=== PATIENT | male | born 1965 | race Caucasian/White ===

== ENCOUNTER → 2016-05-13 | Outpatient (CLI) | payer BC ==
[~2016-05-13] MED LIST: REGADENOSON 0.4 MG/5 ML SYR ONE; SYMIN160 INH; VLTG EXT; VNTHFA/IN INH
--- NOTE | 2016-05-14 00:07 | MYOCARDIAL PERFUSION SCAN ---
STUDY REQUESTED BY: Dr. Shine Crespo. ONE-DAY NUCLEAR MEDICINE TECHNETIUM-99M CARDIOLITE MYOCARDIAL PERFUSION SCAN. INDICATION: Atypical chest pain, new left bundle-branch block. BASELINE EKG: Sinus rhythm at a ventricular rate of 70, first-degree AV block and left bundle-branch block. REGADENOSON STRESS EKG: Nondiagnostic due to left bundle branch and inability to achieve target heart rate. Blood pressure ankit from 128/83 to 133/70. There was no pharmacologic-induced chest tightness. TECHNIQUE: For the stress portion of the study, 32.4 mCi of technetium-99m Cardiolite IV was injected at 1325 on May 13. Thirty minutes following the injection, imaging of the heart was performed in multiple projections. For the rest portion of the study, 11.6 mCi of technetium-99m Cardiolite was injected IV at 1125. One hour following the injection, imaging of the heart was performed in the same projections. FINDINGS: Raw images show mild diaphragmatic attenuation. There is no significant gut uptake impairing the imaging borders of the heart. No significant pathologic extracardiac uptake. No evidence of visual TID. Short axis, vertical long axis and horizontal long axis images were reviewed in detail. There was evidence of a fixed [id number] in severity and moderate in size perfusion defect involving the mid and inferoseptum as well as the apical anterior septal and inferior wall and true apex. There was no significant reversibility. Left ventricular size was upper limit of normal up with preserved overall LV systolic function EF 56%. There was apical septal dyskinesis with wall motion. IMPRESSION: 1. Negative myocardial perfusion study for ischemia. 2. Fixed myocardial perfusion defect involving the septum and apex sparing the lateral apical wall. 3. Normal left ventricular size with preserved overall left ventricular function, EF 56%. Apical septal dyskinesis. 4. Nondiagnostic Regadenoson-induced stress electrocardiogram. 5. Overall, these findings are most consistent with normal perfusion and left-bundle branch block artifact. Possible distal LAD distribution infarct less likely. MTDD
== END | disposition home or self-care (01) ==
LOC: C.NUCL 11:03
PROVIDERS: ATTEND Internal Medicine Interventional Cardiology
DX: E78.5 Hyperlipidemia, unspecified (principal); I44.7 Left bundle-branch block, unspecified; R07.89 Other chest pain

== ENCOUNTER 2016-07-01 01:58 | Observation (INO) | payer BC ==
[~2016-07-01] VITALS: Ht 188 cm; Wt 103.6 kg
[2016-07-01] MEDS ORDERED: ASPIRIN 324 MG CHEW PO STA (02:22)
[2016-07-01] MEDS ORDERED: NITROGLYCERIN OINT 2% 1GM PACKET EXT ONE (02:30)
[2016-07-01 02:42] LABS: BASO % 0.7 %; BASO ABS # 0.05 K/uL (0-0.2); COMPLETE YES; EOS % 2.3 %; HEMATOCRIT 44.3 % (42-52); IG% 0.3 %; LYMPH % 45.1 %; LYMPH ABS # 3.47 K/uL (1.2-3.4); MEAN CELL VOLUME 88.8 fL (80-100); MEAN CORPUSCULAR HEMOGLOBIN 30.9 pg (25-34); MEAN CORPUSCULAR HGB CONC 34.8 g/dl (32-36); MEAN PLATELET VOLUME 10.8 fL (7.4-10.4); MONO % 9.8 %; NEUT % 41.8 %; PLATELET COUNT 228 K/uL (130-400); RED BLOOD COUNT 4.99 M/uL (4.7-6.1); WHITE BLOOD COUNT 7.69 K/uL (4.8-10.8)
[2016-07-01 02:50] LABS: CALCIUM 8.5 mg/dl (8.5-10.1); CREATININE 0.91 mg/dl (0.60-1.40); MAGNESIUM 2.2 mg/dl (1.8-2.4); POTASSIUM 3.5 mmol/L (3.5-5.1)
[2016-07-01 02:59] LABS: PROTHROMBIN TIME (PATIENT) 11.1 SECONDS (9.0-12.0)
[2016-07-01] MEDS ORDERED: OPTIRAY 320 IV PRN (03:00)
[2016-07-01 03:01] LABS: CKMB/CK RATIO 1.8 (0-3.0); THYROID STIMULATING HORMONE 3.92 uIu/ml (0.300-4.500)
[2016-07-01 03:33] LABS: LYME DISEASE AB IGG NEG (NEG); LYME DISEASE AB IGM NEG (NEG)
[2016-07-01] MEDS ORDERED: VNTHFA/IN INH (05:52)
[2016-07-01] MEDS ORDERED: SYMIN160 INH (05:52)
--- NOTE | 2016-07-01 06:48 | DIAGNOSTIC IMAGING REPORT ---
CHEST 2 VIEWS ROUTINE CLINICAL HISTORY: Chest pain, back pain and nausea. COMPARISON STUDY: No previous studies for comparison. FINDINGS: Lung volumes are normal. Lungs are clear. There is no pneumothorax or pleural effusion. Cardiac size is normal. Mediastinal contours are normal. There is no evidence of pulmonary edema. IMPRESSION: No acute cardiopulmonary findings. Electronically signed by: Fitz Camarillo M.D. 07/01/2016 6:47 AM Dictated Date/Time: 07/01/2016 6:46 AM
--- NOTE | 2016-07-01 07:26 | DIAGNOSTIC IMAGING REPORT ---
CT ANGIOGRAPHY OF THE CHEST, PULMONARY EMBOLUS PROTOCOL CLINICAL HISTORY: Mid chest and back pain. Elevated d-dimer. COMPARISON STUDY: Chest radiograph July 01, 2016. TECHNIQUE: Following IV administration of 92 mL of Optiray-320, helical axial images of the chest were obtained utilizing the pulmonary embolus protocol. Maximal intensity projections and sagittal and coronal reformats were viewed on an independent 3D workstation. IV contrast was administered without complication. CT DOSE: 579.70 mGy.cm FINDINGS: No pulmonary emboli are identified. The size of the heart is at the upper limits of normal. There is no evidence of thoracic aortic dissection. There is no pericardial effusion. No enlarged thoracic lymph nodes are present. Central airways are patent. There is no consolidation to suggest pneumonia. Linear and groundglass opacities reflect atelectasis. Bony thorax and upper abdomen are unremarkable. IMPRESSION: 1. No pulmonary emboli identified. 2. No acute intrathoracic findings. Electronically signed by: Fitz Camarillo M.D. 07/01/2016 7:25 AM Dictated Date/Time: 07/01/2016 7:18 AM
--- NOTE | 2016-07-01 07:47 | EMERGENCY ROOM VISIT NOTE ---
History First contact with patient: 02:04 Chief Complaint: CHEST PAIN Stated Complaint: PAIN IN CHEST/BACK,NAUSEA Nursing Triage Summary: Pt woke up with pain in his back radiating into his chest, pt was nauseous then at time. History of Present Illness The patient is a 50 year old male who presents to the Emergency Room with complaints of pain between his shoulder blades that was radiating into his chest. The patient was nauseated and did not feel well at the onset of symptoms. His symptoms began around 12:30 AM and have persisted. The patient considers himself usually healthy and has not had recent illness. He is without distinct shortness of breath. The pain does not radiate into his abdomen or up into the back of his neck. He did take a baby aspirin at the onset of symptoms. The patient has a recent history of abnormal EKG with a cardiac stress test performed last month. The patient states the stress test was normal. He rates his current discomfort a 6/10. Review of Systems More than 10 systems were reviewed and otherwise negative with the exception of history of present illness. Past Medical/Surgical History No chronic medical disease Family History No pertinent family history Social History Smoking Status: Never Smoker Housing Status: lives with family Occupation Status: employed Current/Historical Medications Scheduled Budesonide/Formoterol Fumarate (Symbicort 160/4.5 Inhaler ), 2 PUFFS INH BID Scheduled PRN Albuterol Hfa (Ventolin Hfa), 2-4 PUFFS INH Q6H PRN for SOB/Wheezing Allergies Coded Allergies: No Known Allergies (Unverified , 07/01/16) Physical Exam Vital Signs Date Time Temp Pulse Resp B/P Pulse Ox O2 Delivery O2 Flow Rate FiO2 07/01/16 07:24 72 20 109/70 94 Room Air 07/01/16 06:34 76 18 103/68 97 Room Air 07/01/16 06:18 67 07/01/16 05:00 71 18 105/66 98 Room Air 07/01/16 03:12 76 18 132/72 97 Room Air 07/01/16 02:28 Room Air 07/01/16 02:15 69 07/01/16 02:10 Room Air 07/01/16 01:59 36.4 79 18 142/86 94 Room Air Physical Exam VITALS: Vitals are noted on the nurse's note and reviewed by myself. Vital signs stable. GENERAL: Well-developed, well-nourished, white male, who is in no acute distress and resting comfortably. Patient is cooperative with the examination. HEAD: Normocephalic atraumatic. NECK: Supple without nuchal rigidity. No lymphadenopathy. No thyromegaly. Cervical spine is nontender. HEART: Regular rate and rhythm without murmurs gallops or rubs. LUNGS: Clear to auscultation bilaterally without wheezes, rales or rhonchi. No retractions or accessory muscle use. MUSCULOSKELETAL: No muscle atrophy, erythema, or edema noted. Full range of motion without joint tenderness in all extremities. Medical Decision & Procedures ER Provider Diagnostic Interpretation: CHEST 2 VIEWS ROUTINE CLINICAL HISTORY: Chest pain, back pain and nausea. COMPARISON STUDY: No previous studies for comparison. FINDINGS: Lung volumes are normal. Lungs are clear. There is no pneumothorax or pleural effusion. Cardiac size is normal. Mediastinal contours are normal. There is no evidence of pulmonary edema. IMPRESSION: No acute cardiopulmonary findings. CT ANGIOGRAPHY OF THE CHEST, PULMONARY EMBOLUS PROTOCOL CLINICAL HISTORY: Mid chest and back pain. Elevated d-dimer. COMPARISON STUDY: Chest radiograph July 01, 2016. TECHNIQUE: Following IV administration of 92 mL of Optiray-320, helical axial images of the chest were obtained utilizing the pulmonary embolus protocol. Maximal intensity projections and sagittal and coronal reformats were viewed on an independent 3D workstation. IV contrast was administered without complication. CT DOSE: 579.70 mGy.cm FINDINGS: No pulmonary emboli are identified. The size of the heart is at the upper limits of normal. There is no evidence of thoracic aortic dissection. There is no pericardial effusion. No enlarged thoracic lymph nodes are present. Central airways are patent. There is no consolidation to suggest pneumonia. Linear and groundglass opacities reflect atelectasis. Bony thorax and upper abdomen are unremarkable. IMPRESSION: 1. No pulmonary emboli identified. 2. No acute intrathoracic findings. Laboratory Results 07/01/16 02:10 Red Blood Count 4.99, Mean Corpuscular Volume 88.8, Mean Corpuscular Hemoglobin 30.9, Mean Corpuscular Hemoglobin Concent 34.8, Mean Platelet Volume 10.8, Neutrophils (%) (Auto) 41.8, Lymphocytes (%) (Auto) 45.1, Monocytes (%) (Auto) 9.8, Eosinophils (%) (Auto) 2.3, Basophils (%) (Auto) 0.7, Neutrophils # (Auto) 3.22, Lymphocytes # (Auto) 3.47, Monocytes # (Auto) 0.75, Eosinophils # (Auto) 0.18, Basophils # (Auto) 0.05 07/01/16 02:10 Test 07/01/16 02:10 07/01/16 02:27 07/01/16 06:21 White Blood Count 7.69 K/uL (4.8-10.8) Red Blood Count 4.99 M/uL (4.7-6.1) Hemoglobin 15.4 g/dL (14.0-18.0) Hematocrit 44.3 % (42-52) Mean Corpuscular Volume 88.8 fL (80-100) Mean Corpuscular Hemoglobin 30.9 pg (25-34) Mean Corpuscular Hemoglobin Concent 34.8 g/dl (32-36) Platelet Count 228 K/uL (130-400) Mean Platelet Volume 10.8 fL (7.4-10.4) Neutrophils (%) (Auto) 41.8 % Lymphocytes (%) (Auto) 45.1 % Monocytes (%) (Auto) 9.8 % Eosinophils (%) (Auto) 2.3 % Basophils (%) (Auto) 0.7 % Neutrophils # (Auto) 3.22 K/uL (1.4-6.5) Lymphocytes # (Auto) 3.47 K/uL (1.2-3.4) Monocytes # (Auto) 0.75 K/uL (0.11-0.59) Eosinophils # (Auto) 0.18 K/uL (0-0.5) Basophils # (Auto) 0.05 K/uL (0-0.2) RDW Standard Deviation 39.7 fL (36.4-46.3) RDW Coefficient of Variation 12.3 % (11.5-14.5) Immature Granulocyte % (Auto) 0.3 % Immature Granulocyte # (Auto) 0.02 K/uL (0.00-0.02) Prothrombin Time 11.1 SECONDS (9.0-12.0) Prothromb Time International Ratio 1.0 (0.9-1.1) Activated Partial Thromboplast Time 25.0 SECONDS (21.0-31.0) Partial Thromboplastin Ratio 1.0 Anion Gap 7.0 mmol/L (3-11) Est Creatinine Clear Calc Drug Dose 124.7 ml/min Estimated GFR () 113.5 Estimated GFR (Non- 97.9 BUN/Creatinine Ratio 14.0 (10-20) Calcium Level 8.5 mg/dl (8.5-10.1) Magnesium Level 2.2 mg/dl (1.8-2.4) Total Bilirubin 0.5 mg/dl (0.2-1) Aspartate Amino Transf (AST/SGOT) 25 U/L (15-37) Alanine Aminotransferase (ALT/SGPT) 42 U/L (12-78) Alkaline Phosphatase 96 U/L (45-117) Total Creatine Kinase 150 U/L (39-308) Creatine Kinase MB 2.7 ng/ml (0.5-3.6) Creatine Kinase MB Ratio 1.8 (0-3.0) Total Protein 7.7 gm/dl (6.4-8.2) Albumin 3.9 gm/dl (3.4-5.0) Globulin 3.8 gm/dl (2.5-4.0) Albumin/Globulin Ratio 1.0 (0.9-2) Lipase 145 U/L (73-393) Thyroid Stimulating Hormone (TSH) 3.920 uIu/ml (0.300-4.500) Lyme Disease IgG Antibody NEG (NEG) Lyme Disease IgM Antibody NEG (NEG) Bedside D-Dimer > 450 ng/mlFEU (0-450) Bedside Troponin I 0.000 ng/ml (0-0.045) Medications Administered Medications (Trade) Dose Ordered Sig/Juan David Route Start Time Stop Time Status Last Admin Dose Admin Nitroglycerin (Nitroglycerin 2% Oint) 1 inch NOW ONCE EXT 07/01/16 02:30 07/01/16 02:31 DC 07/01/16 02:34 1 INCH Aspirin (Aspirin Chew) 243 mg NOW STAT PO 07/01/16 02:22 07/01/16 02:26 DC 07/01/16 02:34 243 MG ECG Change: EKG#1 @ 02:06 Normal sinus rhythm with sinus arrhythmia @77bpm Left bundle branch block Abnormal ECG No previous ECGs available EKG #2 @06:16 Normal sinus rhythm @68bpm Left bundle branch block Abnormal ECG When compared with ECG of 01-JUL-2016 02:06, (unconfirmed) T wave inversion no longer evident in Inferior leads QT has shortened ED Course Physical exam and history were performed. Nursing notes and EMR were reviewed. Patient appears to have pain radiating from his back to his chest. EKG was performed and was normal sinus rhythm without distinct ST elevation. IV access was established and labs were obtained. The patient was given additional aspirin and 1 inch of Nitropaste. He is placed on a parts sales advisor. The patient blood work is as above and was reviewed. He does not have significantly white blood cell count, anemia, bandemia, or significant electrolyte imbalance. His lipase and transaminases are nondiagnostic. Troponin 2 was negative and d-dimer was positive. CT scan of the chest did not show acute findings. I discussed the case with the on-call scoop machine operator for [facility], and the recommendation was to perform a third troponin, which would give a full 6 hours of troponins. If this was negative the patient was felt to be stable for discharge home. Prior to departure I was observing the patient on the parts sales advisor, and his monitor EKG appeared to be different from his presenting EKG. A formal EKG was performed with the same EKG leads and the same machine, and showed a distinctly different finding, especially along the lateral leads. Because of this the patient was not felt to be stable for discharge home. He is currently without pain after nitro paste and aspirin. The case was discussed with the on-call hospitalist, who agreed to evaluate the patient here in the emergency department for further care and management. The chart was completed utilizing [employer] Speech Voice Recognition Software. Grammatical errors, random word insertions, pronoun errors, and incomplete sentences are an occasional consequence of this system due to software limitations, ambient noise, and hardware issues. Any formal questions or concerns about the content, text, or information contained within the body of this dictation should be directly addressed to the provider for clarification. . Medical Decision Differential diagnosis includes, but is not limited to: Myocardial infarction, dysrhythmia, pericarditis, pneumothorax, aortic aneurysm/dissection, DVT/PE, anxiety, GERD, PUD, electrolyte imbalance, thyroid disorder, pneumonia, bronchitis, pancreatitis, and others Impression Primary Impression: Acute chest pain Additional Impression: Acute electrocardiogram changes Departure Information Referrals Solic, Rufino,M.D. (PCP) Patient Instructions My [facility] Problem Qualifiers
[2016-07-01 07:56] VITALS: O2SAT 94; Ht 188 cm; Wt 103.6 kg
[2016-07-01] MEDS ORDERED: ALBUTEROL HFA 8 GM INHALER INH PRN (08:00)
[2016-07-01] MEDS ORDERED: POLYETHYLENE (MIRALAX) 17 GM PACK PO PRN (08:00)
[2016-07-01] MEDS ORDERED: ONDANSETRON INJ 2 MG/ML 2 ML VIAL IV PRN (08:00)
[2016-07-01] MEDS ORDERED: ENOXAPARIN 40 MG/0.4 ML SYR SC SCH (08:00)
[2016-07-01] MEDS ORDERED: MAGNESIUM HYDROXIDE SUSP 30 ML UDC PO PRN (08:00)
[2016-07-01] MEDS ORDERED: ALUMINUM/MAGNESIUM/SIMETH (MAALOX MAX) 30 ML UDC PO PRN (08:00)
[2016-07-01] MEDS ORDERED: ACETAMINOPHEN 325 MG TAB PO PRN (08:00)
[2016-07-01] MEDS ORDERED: NITROGLYCERIN 0.4 MG SL PER TAB CHARGE SL PRN (08:00)
--- NOTE | 2016-07-01 08:22 | History and Physical ---
History & Physical Date & Time of Service: July 01, 2016 at 07:59 Chief Complaint: Pain In Chest/Back,Nausea Primary Care Physician: Rufino Hernandez M.D. History of Present Illness Source: patient, family, clinic records, hospital records Patient is a pleasant 50 y/o male, with PMHx of dyslipidemia, asthma, and seasonal allergies, who presented to the ED because of left back pain that occurred at 0100. The pain felt like a stabbing pain. He felt the pain was musculoskeletal in nature. It did not radiate. He admits to associated nausea, but states he thinks "he worked himself up." He currently denies any discomfort. He admits to having a massage on 06/29, and states the massage therapist was really "digging in." Patient was recently seen by Dr. Crespo for a cardiac workup due to dyslipidemia and GERD-like symptoms. Patient had a stress ECHO on 05/13/16; he states he was called by cardiology and cleared with no further restrictions or workup needed. Patient denies any fever, chills, sweats , lightheadedness, dizziness, vision changes, CP, palpitations, edema, SOB, wheezing, cough, abdominal pain, nausea, vomiting, diarrhea, urinary symptoms, melena, numbness/tingling, weakness, anxiety/depression, active bleeding, or new skin discoloration/changes. Past Medical/Surgical History PMHx: 1. Asthma 2. Seasonal allergies 3. Dyslipidemia Surgical repair: 1. Hernia repair Family History Brother- leukemia Social History Smoking Status: Never Smoker Alcohol Use: socially Marital Status: Occupational Status: employed Multi-Drug Resistant Organisms History of MDRO: No Allergies Coded Allergies: No Known Allergies (Unverified , 07/01/16) Home Medications Scheduled Budesonide/Formoterol Fumarate (Symbicort 160/4.5 Inhaler ), 2 PUFFS INH BID Diclofenac Sod (Voltaren), 1 APPLN EXT QID Scheduled PRN Albuterol Hfa (Ventolin Hfa), 2-4 PUFFS INH Q6H PRN for SOB/Wheezing Physical Exam Vital Signs Date Time Temp Pulse Resp B/P Pulse Ox O2 Delivery O2 Flow Rate FiO2 07/01/16 07:24 72 20 109/70 94 Room Air 07/01/16 06:34 76 18 103/68 97 Room Air 07/01/16 06:18 67 07/01/16 05:00 71 18 105/66 98 Room Air 07/01/16 03:12 76 18 132/72 97 Room Air 07/01/16 02:28 Room Air 07/01/16 02:15 69 07/01/16 02:10 Room Air 07/01/16 01:59 36.4 79 18 142/86 94 Room Air General Appearance: WD/WN, no apparent distress Head: normocephalic, atraumatic Eyes: normal inspection, PERRL ENT: hearing grossly normal Neck: supple Respiratory/Chest: lungs clear, no respiratory distress, no accessory muscle use Cardiovascular: regular rate, rhythm Abdomen/GI: normal bowel sounds, non tender, soft Back: normal inspection, + pertinent finding (noted mild left musculoskeletal discomfort ttp at left/medial shoulder blade ) Extremities/Musculoskelatal: no calf tenderness, no pedal edema Neurologic/Psych: alert, normal mood/affect, oriented x 3 Skin: normal color, warm/dry, no rash Diagnostics Laboratory Results Results Past 24 Hours Test 07/01/16 02:10 07/01/16 02:27 07/01/16 03:56 07/01/16 06:21 Range/Units White Blood Count 7.69 4.8-10.8 K/uL Red Blood Count 4.99 4.7-6.1 M/uL Hemoglobin 15.4 14.0-18.0 g/dL Hematocrit 44.3 42-52 % Mean Corpuscular Volume 88.8 80-100 fL Mean Corpuscular Hemoglobin 30.9 25-34 pg Mean Corpuscular Hemoglobin Concent 34.8 32-36 g/dl Platelet Count 228 130-400 K/uL Mean Platelet Volume 10.8 7.4-10.4 fL Neutrophils (%) (Auto) 41.8 % Lymphocytes (%) (Auto) 45.1 % Monocytes (%) (Auto) 9.8 % Eosinophils (%) (Auto) 2.3 % Basophils (%) (Auto) 0.7 % Neutrophils # (Auto) 3.22 1.4-6.5 K/uL Lymphocytes # (Auto) 3.47 1.2-3.4 K/uL Monocytes # (Auto) 0.75 0.11-0.59 K/uL Eosinophils # (Auto) 0.18 0-0.5 K/uL Basophils # (Auto) 0.05 0-0.2 K/uL RDW Standard Deviation 39.7 36.4-46.3 fL RDW Coefficient of Variation 12.3 11.5-14.5 % Immature Granulocyte % (Auto) 0.3 % Immature Granulocyte # (Auto) 0.02 0.00-0.02 K/uL Prothrombin Time 11.1 9.0-12.0 SECONDS Prothromb Time International Ratio 1.0 0.9-1.1 Activated Partial Thromboplast Time 25.0 21.0-31.0 SECONDS Partial Thromboplastin Ratio 1.0 Sodium Level 143 136-145 mmol/L Potassium Level 3.5 3.5-5.1 mmol/L Chloride Level 105 98-107 mmol/L Carbon Dioxide Level 31 21-32 mmol/L Anion Gap 7.0 3-11 mmol/L Blood Urea Nitrogen 13 7-18 mg/dl Creatinine 0.91 0.60-1.40 mg/dl Est Creatinine Clear Calc Drug Dose 124.7 ml/min Estimated GFR () 113.5 Estimated GFR (Non- 97.9 BUN/Creatinine Ratio 14.0 10-20 Random Glucose 116 70-99 mg/dl Calcium Level 8.5 8.5-10.1 mg/dl Magnesium Level 2.2 1.8-2.4 mg/dl Total Bilirubin 0.5 0.2-1 mg/dl Aspartate Amino Transf (AST/SGOT) 25 15-37 U/L Alanine Aminotransferase (ALT/SGPT) 42 12-78 U/L Alkaline Phosphatase 96 45-117 U/L Total Creatine Kinase 150 39-308 U/L Creatine Kinase MB 2.7 0.5-3.6 ng/ml Creatine Kinase MB Ratio 1.8 0-3.0 Total Protein 7.7 6.4-8.2 gm/dl Albumin 3.9 3.4-5.0 gm/dl Globulin 3.8 2.5-4.0 gm/dl Albumin/Globulin Ratio 1.0 0.9-2 Lipase 145 73-393 U/L Thyroid Stimulating Hormone (TSH) 3.920 0.300-4.500 uIu/ml Lyme Disease IgG Antibody NEG NEG Lyme Disease IgM Antibody NEG NEG Bedside D-Dimer > 450 0-450 ng/mlFEU Bedside Troponin I 0.000 0.000 0.000 0-0.045 ng/ml Diagnostic Radiology CHEST 2 VIEWS ROUTINE CLINICAL HISTORY: Chest pain, back pain and nausea. COMPARISON STUDY: No previous studies for comparison. FINDINGS: Lung volumes are normal. Lungs are clear. There is no pneumothorax or pleural effusion. Cardiac size is normal. Mediastinal contours are normal. There is no evidence of pulmonary edema. IMPRESSION: No acute cardiopulmonary findings. Electronically signed by: Fitz Camarillo M.D. 07/01/2016 6:47 AM Dictated Date/Time: 07/01/2016 6:46 AM The status of this report is Signed. Draft = Not yet reviewed or approved by Radiologist. Signed = Reviewed and approved by Radiologist. CT ANGIOGRAPHY OF THE CHEST, PULMONARY EMBOLUS PROTOCOL CLINICAL HISTORY: Mid chest and back pain. Elevated d-dimer. COMPARISON STUDY: Chest radiograph July 01, 2016. TECHNIQUE: Following IV administration of 92 mL of Optiray-320, helical axial images of the chest were obtained utilizing the pulmonary embolus protocol. Maximal intensity projections and sagittal and coronal reformats were viewed on an independent 3D workstation. IV contrast was administered without complication. CT DOSE: 579.70 mGy.cm FINDINGS: No pulmonary emboli are identified. The size of the heart is at the upper limits of normal. There is no evidence of thoracic aortic dissection. There is no pericardial effusion. No enlarged thoracic lymph nodes are present. Central airways are patent. There is no consolidation to suggest pneumonia. Linear and groundglass opacities reflect atelectasis. Bony thorax and upper abdomen are unremarkable. IMPRESSION: 1. No pulmonary emboli identified. 2. No acute intrathoracic findings. Electronically signed by: Fitz Camarillo M.D. 07/01/2016 7:25 AM Dictated Date/Time: 07/01/2016 7:18 AM The status of this report is Signed. Draft = Not yet reviewed or approved by Radiologist. Signed = Reviewed and approved by Radiologist. EKG PARMJIT SANDOVAL ID:[id number] 01-JUL-2016 02:06:33 [facility] Normal sinus rhythm with sinus arrhythmia Left bundle branch block Abnormal ECG No previous ECGs available 25mm/s 10mm/mV 150Hz 8.0 SP2 12SL 241 CLE[place]: 0 Referred by: Referred Self Unconfirmed Vent. rate 77 BPM IA interval 196 ms QRS duration 174 ms QT/QTc 464/525 ms P-R-T axes 63 28 -83 1965 (50 yr) Male Room: Loc:15 Helminthologist:Stephanie Blount Test ind: PARMJIT SANDOVAL ID:[id number] 01-JUL-2016 06:16:09 [facility] Normal sinus rhythm Left bundle branch block Abnormal ECG When compared with ECG of 01-JUL-2016 02:06, (unconfirmed) T wave inversion no longer evident in Inferior leads QT has shortened 25mm/s 10mm/mV 150Hz 8.0 SP2 12SL 241 CLE[place]: 0 Referred by: Referred Self Unconfirmed Vent. rate 68 BPM IA interval 192 ms QRS duration 150 ms QT/QTc 446/474 ms P-R-T axes 1965 (50 yr) Male Room: Loc:15 Helminthologist:JESSICA TRIPLETT Test ind: Impression Assessment and Plan Patient is a pleasant 50 y/o male, with PMHx of dyslipidemia, asthma, and seasonal allergies, who presented to the ED because of left back pain that occurred at 0100. Cardiac workup: - Admit to tele observation - Trend cardiac enzymes- negative x3, will repeat at noon - Elevated d-dimer- CTA negative for PE - CXR unremarkable - Lyme disease- negative - Patient follows w/ Dr. Crespo- recently had a stress ECHO on 05/13/16 - Spoke w/ Dr. Crespo, repeat trop at noon, will see patient later this afternoon - Will keep patient NPO pending cardiology consult - Elevated BSG @116- check ha1c - EKG w/ CP and QAM Dyslipidemia: - Noted in Jan 2016- has been living a healthier lifestyle and losing weight Asthma: Continue home inhalers GI Prophylaxis: Maalox PRN, IV Zofran PRN, Colace and/or Milk of Mag PRN DVT prophylaxis: Ambulation Code Status: LEVEL I, FULL Dispo: From home, lives w/ family- no discharge needs anticipated Level of Care Telemetry Resuscitation Status FULL RESUSCITATION VTE Prophylaxis VTE Risk Assessment Done? Y/N: Yes Risk Level: Low Given or contraindicated: Enoxaparin (Lovenox)SQ, T.E.D. Stockings, SCD's Note Attending Admission Note & Attestation: Pt seen/examined, chart reviewed, and care plan d/w PA Su Murarik. I agree w/ the goncalves components of her admission documentation. 50yo male with history of asthma & hyperlipidemia who presented early this AM w / complaint of left upper back pain near the medial border of his left scapula. The pain made him have nausea and it radiated through the body to the front left chest. He did not have sob, cough, pleuritic pain, or emesis. No diaphoresis. Did not have left arm pain or numbness. Denies any pain related to moving the neck. Denies any recent injury. He had a massage a couple of days ago but the pain did not start until 24 hrs after. At the time of my assessment he has minimal left upper back pain. Denies any chest pain. Tele has been normal since admission. PMH, PSH, allergies, meds, sochx, famhx, ros - reviewed VSS, afebrile gen - NAD neck - no pain with passive ROM; no JVD heart - RRR, s1, s2, no murmur lungs - CTA b/l, no wheeze chest - no pain with palpation abd - soft, NT ext - no edema back - mild tenderness to palpation over the upper left back at the junction of the medial scapular border; I am unable to reproduce the pain with moving the neck or left arm/shoulder; no spinous process pain labs - cbc, bmp nl except minimal hyperglycemia trops (multiple) negative EKG - NSR, LBBB, no ST changes A/P: 1. left upper back pain - suspect musculoskeletal etiology; no evidence of cervical radiculopathy or shoulder pathology 2. chest discomfort - no evidence of ACS, pericarditis (clinically), pneumonia , PE, or other chest process; could have been referred pain from the back but uncertain 3. abnormal stress test in May 2016 4. asthma - controlled / without exacerbation check [address] Crespo from cardiology voltaren gel to left back qid for pain additional labs will dictate plan of care Diallo Marie MD
[2016-07-01 08:27] LABS: ESTIMATED AVERAGE GLUCOSE 105 mg/dl; HA1C FLAG Normal (Normal)
[2016-07-01 08:30] VITALS: BP 110/70; PULSE 74; TEMP 37.1; O2SAT 95
[2016-07-01 09:05] VITALS: O2SAT 96
[2016-07-01] MEDS ORDERED: PANTOprazole SOD 40 MG TAB PO SCH (10:30)
[2016-07-01] MEDS ORDERED: IV FLUIDS COMPLETED PRN (10:30)
[2016-07-01] MEDS ORDERED: ASPIRIN 81 MG ECTAB PO SCH (10:30)
[2016-07-01 11:32] VITALS: BP 123/68; PULSE 62; TEMP 37.1; O2SAT 94
--- NOTE | 2016-07-01 13:10 | Discharge Instructions ---
Discharge Instructions Date of Service July 01, 2016. Admission Reason for Admission: Acute Chest Pain Discharge Discharge Diagnosis / Problem: Acute chest discomfort Discharge Goals Goal(s): Decrease discomfort, Learn about illness, Diagnostic testing, Prevent Disease Progression Activity Recommendations Activity Limitations: resume your previous activity . Instructions / Follow-Up Instructions / Follow-Up May apply Voltaren gel four times per day to affected musculoskeletal area ( upper left back). Resume all regular home medications as prescribed to you Please follow-up with your PCP within 5-7 days Please follow-up with Cardiology as instructed by Dr. Crespo Please follow-up/keep all of your subspecialty appointments Home Care: * If you are having chest pain, call 911 for an ambulance. Do NOT drive yourself to the hospital. * Ask your family members to learn CPR. * Learn to take your own blood pressure and pulse. Keep a record of your results. Ask your doctor when you should seek emergency medical attention. He or she will tell you which blood pressure reading is dangerous. Lifestyle Changes: * Maintain a healthy weight. Get help to lose any extra pounds. * Cut back on salt. * Limit canned, dried, packaged, and fast foods. * Don't add salt to your food. * Season foods with herbs instead of salt when you cook. * Break the smoking habit. Enroll in a stop-smoking program to improve your chances of success. * Limit fatty foods. * Check your lipid levels regularly. (Your doctor can show you how to do this.) * Build up your activity according to your doctor's recommendation. * Ask your doctor when it's okay to resume sexual activity. * Tell your doctor about any erectile dysfunction (ED) medication you are taking. Some ED medications are not safe if you take certain heart medications. * Try to manage stress. Follow Up: It is important for you to keep your follow up appointments with your medical provider. Current Hospital Diet Patient's current hospital diet: Discharge Diet Recommended Diet: AHA Diet (Heart Healthy) Procedures Procedures Performed: 1. CXR 2. Chest CTA Pending Studies Studies pending at discharge: no Laboratory Results Last 24 Hours Test 07/01/16 02:10 07/01/16 02:27 07/01/16 03:56 07/01/16 06:21 White Blood Count 7.69 K/uL Red Blood Count 4.99 M/uL Hemoglobin 15.4 g/dL Hematocrit 44.3 % Mean Corpuscular Volume 88.8 fL Mean Corpuscular Hemoglobin 30.9 pg Mean Corpuscular Hemoglobin Concent 34.8 g/dl Platelet Count 228 K/uL Mean Platelet Volume 10.8 fL Neutrophils (%) (Auto) 41.8 % Lymphocytes (%) (Auto) 45.1 % Monocytes (%) (Auto) 9.8 % Eosinophils (%) (Auto) 2.3 % Basophils (%) (Auto) 0.7 % Neutrophils # (Auto) 3.22 K/uL Lymphocytes # (Auto) 3.47 K/uL Monocytes # (Auto) 0.75 K/uL Eosinophils # (Auto) 0.18 K/uL Basophils # (Auto) 0.05 K/uL RDW Standard Deviation 39.7 fL RDW Coefficient of Variation 12.3 % Immature Granulocyte % (Auto) 0.3 % Immature Granulocyte # (Auto) 0.02 K/uL Prothrombin Time 11.1 SECONDS Prothromb Time International Ratio 1.0 Activated Partial Thromboplast Time 25.0 SECONDS Partial Thromboplastin Ratio 1.0 Sodium Level 143 mmol/L Potassium Level 3.5 mmol/L Chloride Level 105 mmol/L Carbon Dioxide Level 31 mmol/L Anion Gap 7.0 mmol/L Blood Urea Nitrogen 13 mg/dl Creatinine 0.91 mg/dl Est Creatinine Clear Calc Drug Dose 124.7 ml/min Estimated GFR () 113.5 Estimated GFR (Non- 97.9 BUN/Creatinine Ratio 14.0 Random Glucose 116 mg/dl Estimated Average Glucose 105 mg/dl Hemoglobin A1c 5.3 % Calcium Level 8.5 mg/dl Magnesium Level 2.2 mg/dl Total Bilirubin 0.5 mg/dl Aspartate Amino Transf (AST/SGOT) 25 U/L Alanine Aminotransferase (ALT/SGPT) 42 U/L Alkaline Phosphatase 96 U/L Total Creatine Kinase 150 U/L Creatine Kinase MB 2.7 ng/ml Creatine Kinase MB Ratio 1.8 Total Protein 7.7 gm/dl Albumin 3.9 gm/dl Globulin 3.8 gm/dl Albumin/Globulin Ratio 1.0 Lipase 145 U/L Thyroid Stimulating Hormone (TSH) 3.920 uIu/ml Lyme Disease IgG Antibody NEG Lyme Disease IgM Antibody NEG Bedside D-Dimer > 450 ng/mlFEU Bedside Troponin I 0.000 ng/ml 0.000 ng/ml 0.000 ng/ml Test 07/01/16 11:50 Creatine Kinase MB 1.4 ng/ml Creatine Kinase MB Ratio Troponin I < 0.015 ng/ml Hemoglobin A1c Test 07/01/16 02:10 Range/Units Estimated Average Glucose 105 mg/dl Hemoglobin A1c 5.3 4.5-5.6 % Medical Emergencies . Who to Call and When: Medical Emergencies: If at any time you feel your situation is an emergency, please call 911 immediately. Call 911 immediately or go to your nearest Emergency Room if you experience any of the following: Warning Signs and Symptoms of a Heart Attack * Chest pain that is not relieved by medication * Shortness of breath . Non-Emergent Contact Non-Emergency issues call your: Primary Care Provider . . "Provider Documentation" section prepared by Su Alarcon. Attending Attestation: Pt seen/examined on day of discharge and care plan d/w THELMA Alarcon. I agree w/ her discharge instructions as outlined. Diallo Marie MD . AMI Core Measures Reason no ASA as I/P: Treatment provided - N/A Reason no ASA at D/C: Treatment not indicated Reason no statin as I/P: Treatment not indicated Reason no statin at D/C: Treatment not indicated VTE Core Measure Inpt VTE Proph given/why not?: Tabatha Black, LEONARD's
--- NOTE | 2016-07-01 13:16 | Discharge Summary ---
Discharge Summary Date of Service July 01, 2016. (Su Alarcon ., PRADEEP) Discharge Summary Admission Date: July 01, 2016 at 07:59 Discharge Date: July 01, 2016 Discharge Disposition: Home Principal Diagnosis: Chest discomfort Problems/Secondary Diagnoses: Dyslipidemia Asthma Seasonal allergies Procedures: CHEST 2 VIEWS ROUTINE CLINICAL HISTORY: Chest pain, back pain and nausea. COMPARISON STUDY: No previous studies for comparison. FINDINGS: Lung volumes are normal. Lungs are clear. There is no pneumothorax or pleural effusion. Cardiac size is normal. Mediastinal contours are normal. There is no evidence of pulmonary edema. IMPRESSION: No acute cardiopulmonary findings. Electronically signed by: Fitz Camarillo M.D. 07/01/2016 6:47 AM Dictated Date/Time: 07/01/2016 6:46 AM The status of this report is Signed. Draft = Not yet reviewed or approved by Radiologist. Signed = Reviewed and approved by Radiologist. CT ANGIOGRAPHY OF THE CHEST, PULMONARY EMBOLUS PROTOCOL CLINICAL HISTORY: Mid chest and back pain. Elevated d-dimer. COMPARISON STUDY: Chest radiograph July 01, 2016. TECHNIQUE: Following IV administration of 92 mL of Optiray-320, helical axial images of the chest were obtained utilizing the pulmonary embolus protocol. Maximal intensity projections and sagittal and coronal reformats were viewed on an independent 3D workstation. IV contrast was administered without complication. CT DOSE: 579.70 mGy.cm FINDINGS: No pulmonary emboli are identified. The size of the heart is at the upper limits of normal. There is no evidence of thoracic aortic dissection. There is no pericardial effusion. No enlarged thoracic lymph nodes are present. Central airways are patent. There is no consolidation to suggest pneumonia. Linear and groundglass opacities reflect atelectasis. Bony thorax and upper abdomen are unremarkable. IMPRESSION: 1. No pulmonary emboli identified. 2. No acute intrathoracic findings. Electronically signed by: Fitz Camarillo M.D. 07/01/2016 7:25 AM Dictated Date/Time: 07/01/2016 7:18 AM The status of this report is Signed. Draft = Not yet reviewed or approved by Radiologist. Signed = Reviewed and approved by Radiologist. Consultations: Cardiology- Dr. Crespo (Su Alarcon ., ANGELOC) Problems/Secondary Diagnoses: left upper back pain - musculoskeletal in etiology; cardiopulmonary etiologies ruled out (Diallo Marie MD) Medication Reconciliation New Medications: Diclofenac Sod (Voltaren) 100 Appln/100 Gm Gel 1 APPLN EXT QID for 30 Days, #120 APPLN 4 gms to upper left back four times per day Continued Medications: Albuterol Hfa (Ventolin Hfa) 200 Puffs/33205 Mcg Aers 2-4 PUFFS INH Q6H PRN for SOB/Wheezing, #1 INHALER Budesonide/Formoterol Fumarate (Symbicort 160/4.5 Inhaler ) Aero 2 PUFFS INH BID, INHALER Discharge Exam Review of Systems: Constitutional: No chills, No fatigue, No fever, No sweats, No weakness Respiratory: No cough, No hemoptysis, No shortness of breath Cardiovascular: No chest pain, No edema, No palpitations Abdomen: No constipation, No diarrhea, No nausea, No pain, No vomiting Musculoskeletal: No calf pain, No joint pain, No muscle pain, No swelling Genitourinary - Male: No dysuria, No hematuria Neurologic: No numbness/tingling, No weakness Psychiatric: No anxiety, No depression symptoms Hematologic / Lymphatic: No abnormal bleeding/bruising Integumentary: No itch, No new/changing skin lesions, No rash Physical Exam: General Appearance: no apparent distress Eyes: normal inspection, PERRL ENT: hearing grossly normal Neck: supple Respiratory/Chest: lungs clear, no respiratory distress, no accessory muscle use Cardiovascular: regular rate, rhythm Abdomen / GI: normal bowel sounds, non tender, soft Extremities: no calf tenderness, no pedal edema Neurologic/Psychiatric: alert, normal mood/affect, oriented x 3 Skin: normal color, warm/dry, no rash (Su Alarcon, PA-C) Hospital Course HPI at admission: Patient is a pleasant 50 y/o male, with PMHx of dyslipidemia, asthma, and seasonal allergies, who presented to the ED because of left back pain that occurred at 0100. The pain felt like a stabbing pain. He felt the pain was musculoskeletal in nature. It did not radiate. He admits to associated nausea, but states he thinks "he worked himself up." He currently denies any discomfort. He admits to having a massage on 06/29, and states the massage therapist was really "digging in." Patient was recently seen by Dr. Crespo for a cardiac workup due to dyslipidemia and GERD-like symptoms. Patient had a stress ECHO on 05/13/16; he states he was called by cardiology and cleared with no further restrictions or workup needed. Patient denies any fever, chills, sweats , lightheadedness, dizziness, vision changes, CP, palpitations, edema, SOB, wheezing, cough, abdominal pain, nausea, vomiting, diarrhea, urinary symptoms, melena, numbness/tingling, weakness, anxiety/depression, active bleeding, or new skin discoloration/changes. Cardiac workup: - Admit to tele observation - Trend cardiac enzymes- negative x4 - Elevated d-dimer- CTA negative for PE - CXR unremarkable - Lyme disease- negative - Patient follows w/ Dr. Crespo- recently had a stress ECHO on 05/13/16 - Spoke w/ Dr. Crespo- evaluated patient, OK for discharge; he is scheduling f /u for next week and ?possible cath - Keep NPO pending cardiology consult- resume diet at discharge - Elevated BSG @116- ha1c of 5.3% - EKG w/ CP and QAM - Discharged w/ Voltaren gel QID to affected musculoskeletal area Dyslipidemia: - Noted in Jan 2016- has been living a healthier lifestyle and losing weight Asthma: Continue home inhalers GI Prophylaxis: Maalox PRN, IV Zofran PRN, Colace and/or Milk of Mag PRN DVT prophylaxis: Ambulation Code Status: LEVEL I, FULL Dispo: Discharge to home w/ cardiology f/u next week Total Time Spent: Greater than 30 minutes This includes examination of the patient, discharge planning, medication reconciliation, and communication with other providers. (Su Alarcon ., PA-C) Attending Discharge Note & Attestation: Pt seen/examined, chart reviewed, and care plan d/w THELMA Alarcon. I agree with the goncalves components of her discharge summary. 50yo male with history of asthma and hyperlipidemia who presented with acute left upper back pain. Some of the pain radiated to the left chest and there was associated nausea. By the time of ER presentation his chest symptoms were resolving. Cardiac work-up while here including serial troponins, EKGs, telemetry, and other labs were normal. CTA chest failed to show PE, pneumonia, CHF, etc. He had no evidence of asthma exacerbation. He was seen by Dr. Crespo from [facility] cardiology who will arrange an outpatient cardiac cath in the event some of his symptoms were cardiac in nature. However, the left upper back pain was reproducible and felt to be musculoskeletal in etiology. Discharge exam: gen - NAD neck - no JVD; no tenderness with passive ROM heart - RRR, s1, s2, no murmur lungs - CTA b/l chest - no reproducible chest wall pain abd - soft, NT ext - no edema; left shoulder - full ROM, no tenderness back - tender to palpation over paraspinal musculature in the upper left back near the medial scapula Pt will use voltaren gel qid to the back. Outpatient cardiac cath will be arranged within 1 week. Diallo Marie MD (Diallo Marie MD) Discharge Instructions Please refer to the electronic Patient Visit Report (Discharge Instructions) for additional information. (Su Alarcon ., PA-C) Follow-Up Please follow-up with your PCP within 5-7 days Please follow-up with Cardiology as instructed by Dr. Crespo Please follow-up/keep all of your subspecialty appointments (Su Alarcon ., PA-C) Additional Copies To Shine Crespo MD; Rufino Hernandez M.D.
[2016-07-01] MEDS ORDERED: VLTG EXT ×2 (13:58→14:02)
[2016-07-01] MEDS ORDERED: DICLOFENAC SOD 1% GEL 100 GM TUBE EXT SCH (14:00)
[2016-07-01 14:06] VITALS: BP 123/68; PULSE 62; TEMP 37.1; O2SAT 94
[2016-07-01] MEDS ORDERED: BUDESONIDE/FORMOTEROL FUMARATE 160/4.5 60 PUFFS/INHALER INH SCH (21:00)
--- NOTE | 2016-07-02 00:48 | CARDIOLOGY CONSULTATION ---
DATE OF CONSULTATION: 07/01/2016 REASON FOR CONSULTATION: Chest tightness. CONSULTATION REQUESTED BY: Dr. Marie. HISTORY OF PRESENT ILLNESS: Mr. Rodriguez is a very pleasant 50-year-old man with a history of asthma, allergic rhinitis, dyslipidemia who was admitted overnight in the setting of acute onset of back pain, chest tightness. The patient was initially seen by me in March at which time I was referred in the setting of intermittent chest tightness with exertion. He was initially scheduled for an exercise stress echo, but that was postponed in the setting of a newly discovered left bundle branch block. He was ordered a pharmacologic nuclear SPECT which showed preserved LV function and apical septal, inferior wall perfusion defect that was fixed and thought likely secondary due to his left bundle branch block. No further therapy or workup was found necessary. Since that time, the patient overall has been doing well and he had minimal recurrent symptoms until last night when approximately at 1:00 in the morning was awoken by the pain in his back, but then radiated to his left chest which was associated with mild nausea. Symptoms persisted and were concerning the patient, as a result presented to the Emergency Department. Upon arrival, the patient was hemodynamically stable. He had an EKG which showed his chronic left bundle branch block. Initial labs were unremarkable except for a mildly elevated D-dimer at 450. In that point of care, troponin and subsequent troponins have been negative, less than 0.015. He did undergo a chest x-ray which showed no acute cardiopulmonary process and a thoracic CTA which showed no evidence of pulmonary embolism or aortic pathology. Since admission, the patient has been chest pain free. He has had no event on telemetry and is feeling his baseline. PAST MEDICAL HISTORY: 1. Left bundle branch block. 2. Hyperlipidemia. 3. Allergic rhinitis. 4. Asthma. FAMILY HISTORY: No family history of premature coronary artery disease. SOCIAL HISTORY: Denies tobacco, alcohol or illicit drugs. 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 REVIEW OF SYSTEMS: A 10 point review of systems completed and otherwise negative or listed in HPI. ALLERGIES: No known drug allergies. PHYSICAL EXAMINATION: VITAL SIGNS: Temperature 37.1, pulse 62, blood pressure 123/68. He is satting 94% on room air. GENERAL: The patient appears comfortable, in no acute distress. HEENT: Sclerae are anicteric. Oropharynx is clear. Mucous membranes are moist. NECK: Supple, no lymphadenopathy. LUNGS: Clear to auscultation bilaterally. HEART: Regular rate and rhythm with no murmurs, rubs or gallops. ABDOMEN: Soft, nontender, nondistended with positive bowel sounds. EXTREMITIES: Warm with no significant lower extremity edema. SKIN: Shows no rashes or lesions. NEUROLOGIC: Grossly nonfocal. PSYCHIATRIC: He is alert and oriented x3. Mood and affect is appropriate. LABORATORY DATA: CBC within normal limits. Chemistry within normal limits. INR normal and D-dimer, troponins, EKG and imaging as discussed in HPI. IMPRESSION AND PLAN: 1. Chest tightness. 2. Hyperlipidemia. 3. Left bundle branch block. The patient here with acute onset of chest tightness/back pain waking patient from sleep last night. Initial workup has been unremarkable with no signs of cardiac ischemia by cardiac enzymes and EKG again shows chronic left bundle branch block. No evidence of PE, lung pathology or aortic pathology on CT scan. At this point, low suspicion for acute coronary syndrome or other high risk condition. In the setting of recurrent chest pain, an abnormal stress test and a left bundle branch block of unclear etiology, do feel that further evaluation for potential coronary artery disease is warranted. As such, I feel that should proceed with cardiac catheterization. Unless there is evidence of acute coronary syndrome at this time, I feel that this could be done next week per patient's preference. We will plan to schedule for next Thursday, the . I have asked the patient to avoid strenuous exercise and return if any recurrent/persistent symptoms. From a cardiac standpoint, the patient is okay for discharge later today and this was discussed with hospitalist team. Thank you for allowing us to participate in the care of this patient. Please contact with any questions. NEELIMA
[2016-10-30] MEDS ORDERED: VNTHFA/IN INH (07:33)
== END 2016-07-01 14:36 | disposition home or self-care (01) ==
LOC: ENRESERVTM → ENRESERVDT → C.EDB 01:59 → C.MED 07:59
PROVIDERS: ADMIT Internal Medicine; ATTEND Internal Medicine
DX: R07.9 Chest pain, unspecified (principal); M54.6 Pain in thoracic spine; J45.909 Unspecified asthma, uncomplicated; E78.5 Hyperlipidemia, unspecified; Z80.6 Family history of leukemia; I44.7 Left bundle-branch block, unspecified

== ENCOUNTER → 2016-07-09 | Day surgery (SDC) | payer BC ==
[~2016-07-09] VITALS: Ht 188 cm; Wt 100.0 kg
[~2016-07-09] MED LIST changes: +FENTANYL CITRATE INJ 50 MCG/1 ML 2 ML VIAL ONE; +HEPARIN SOD (PORCINE) 1000 UNIT/ML 10 ML VIAL ONE; +MIDAZOLAM HCL 1 MG/ML 2ML VIAL ONE; +NITROGLYCERIN/D5W 100MCG/ML 20ML SYR ONE; +NiCARDipine HCL INJ 2.5 MG/ML 10 ML AMP ONE; -REGADENOSON 0.4 MG/5 ML SYR ONE
[2016-07-09 07:00] VITALS: BP 144/82; PULSE 78; TEMP 37; O2SAT 97; Ht 188 cm; Wt 100.0 kg
--- NOTE | 2016-07-09 07:44 | History & Physical Bridge Note ---
H&P Re-Evaluation Bridge Note: I have examined the patient, reviewed the History & Physical and in the interval since the performance of the History & Physical I have noted the following changes of clinical significance: No changes noted
--- NOTE | 2016-07-09 07:44 | Procedure Note ---
Pre-Mod Sedation Assessment General Date of Moderate Sedation: July 09, 2016. Vital Signs: Vital Signs Past 12 Hours Date Time Temp Pulse Resp B/P Pulse Ox O2 Delivery O2 Flow Rate FiO2 07/09/16 07:00 37 78 18 144/82 97 Room Air Review Cardiovascular: regular rate, rhythm, no edema Abdomen: normal bowel sounds, non tender Lungs: chest non-tender, lungs clear Pre-Sedation Airway Assessment Oral Cavity: WNL Able to Visualize Vocal Cords: No Short Thick Neck: No Hx of Sleep Apnea: No Smoking Status: Never Smoker Mallampati Classification: Class II ASA Classification: Class II Procedure Planning Contraindications-for Mod Sed: None Yes Notes The planned sedation has been discussed with the patient and consent obtained. I have identified the patient, determined the appropriateness of sedation and have assessed the patient immediately prior to the procedure. All medicine(s) and interventions are by my order.
--- NOTE | 2016-07-09 08:58 | Cardiac Catheterization ---
Procedure Note Procedure Date July 09, 2016. Pre-Procedure Diagnosis Angina, Positive Stress Test AUC Score 7 Procedure(s) Performed Coronary Angiography, Left Heart Cath Skid Adzer Dr. Crespo Pinion Sorter(s) Babar Estimated Blood Loss Medication(s) Fentanyl, Heparin, Nitroglycerin, Versed, Lidocaine 1% Summary of Findings Indication: Abnormal Stress/Recurrent chest pain Access: 6Fr Slender Right Radial Artery Catheters: Chester, JL3.5, Pigtail Findings: LM - Large caliber vessel, angiographically normal LAD - Large caliber vessel, luminal irregularities Circumflex - Dominant, large caliber vessel, luminal irregularities RCA - Non-dominant, small caliber vessel, luminal irregularities. With injection vasovagal reaction and ALMA 1-2 flow noted. LVEDP - 14 LVEF 50% Arterial Closure: TR Band Summary: 1. Essentially normal coronary artery disease - Sluggish flow in small non-dominant RCA, possible microvascular dysfunction 2. Normal LV systolic function and intracardiac filling pressure Recommendations: Continued ASCVD risk factor modification. Follow-up in with cardiology in 6 months with repeat lipid panel for elevated triglycerides If continued symptoms will consider vasodilator for possible microvascular dysfunction. Hemodynamics Rest Ao: 98/69/81 Final Ao: 103/63/81 LV: 108/14 Recommendations Medical therapy and/or Counseling Specimens None Radiation Exposure (mGy) 545 Contrast (mls) 65 Visipaque Fluids (cc crystalloids) 211 Drains none Anesthesia Moderate (7:58 - 8:27) Procedural Complication(s) None Disposition Draw Tender Holding/Recovery ACC Data Cardiac Status Clinical evaluation leading to the procedure CAD Presntation: Positive Stress Test Anginal Classification: CCS III Heart Failure: No, NYHA Class: CCS I Cardiogenic Shock w/in 24Hrs: No Cardiac Arrest w/in 24Hrs: No Imaging studies past 6 months: Yes Stress studies past 6 months: Yes Standard Exercise Stress Test: No Stress Echocardiogram: No Stress Testing w/SPECT MPI: Yes - Indeterminant Cardiac CTA: No Coronary Anatomy Dominant: Left Left Main (% Stenosis): Normal LAD (% Stenosis): Normal Circumflex (% Stenosis): Normal RCA (% Stenosis): Distal (Sluggish distal flow ) Left Ventricular Angiography EF (%): 50 Aortography Aortic Regurgitation: 1+ Diagnostic Physician's Name: Shine Crespo MD Status: Elective Closure Device Percutaneous Entry Location: Radial Closure Device: Radial Band Recommendations: Medical therapy and/or Counseling PCI Indication: + Stress Test Intraprocedure Events Significant Dissection: No Perforation: No
--- NOTE | 2016-07-09 08:58 | Procedure Note ---
Post-Mod Sedation Assessment General Date of Moderate Sedation July 09, 2016. Vital Signs: Vital Signs Past 12 Hours Date Time Temp Pulse Resp B/P Pulse Ox O2 Delivery O2 Flow Rate FiO2 07/09/16 07:00 37 78 18 144/82 97 Room Air Review - Discharge Criteria Vital Signs Stable: Yes Alert/Oriented/Conversant: Yes Returned to Baseline Mental St: Yes Nausea Absent/Minimal: Yes Pain/Discomfort/Absent/Minimal: Yes Normal/Baseline Respirations: Yes Active Bleeding?: No Pt Received D/C Instructions: N/A Prescriptions Given: None Specific Proced. D/C Criteria Distal Pulses Present (Cardiac: Yes Groin site assessed-Card Cath: N/A Voided Prior To Discharge: N/A Discharged Patients Adult Escort/Transportation: Yes
--- NOTE | 2016-07-09 09:03 | Discharge Instructions ---
Discharge Instructions Procedure Procedure Date: July 09, 2016. Reason for Visit: Chest Pain , Dr. Crespo. Discharge Discharge Date: July 09, 2016. Discharge Diagnosis: ACTIVITY RECOMMENDATIONS: It is common to feel weak and fatigue for a few days. * Do not drive or operate any motorized equipment for the next day. * Limit stair usage (2 or 3 trips a day only) for today. * Do not lift anything heavier than 10 pounds for the next 2 days. * Do not engage in vigorous exercise or any sports for the next five days. * You may shower the day after your procedure, but do not immerse the area for three days. Cleanse the site gently with soap and water. SPECIAL CARE INSTRUCTIONS: * You may replace the pressure dressing or band-aid the morning after the procedure. * After your procedure, it is normal to have a small bruise or small lump at the site. Examine your site daily for any change in the bruise or lump, redness, swelling, drainage or numbness. Notify your doctor if any change. BLEEDING: * If there is a small amount of bleeding at the site, lie down and apply firm pressure with a clean cloth for ten minutes. When the bleeding stops, lie quietly keeping the procedure limb straight for six hours. Notify your doctor as soon as possible. * If the bleeding does not stop after ten minutes or if there is a large amount of bleeding or spurting, call 911 immediately. Continue to lie down and hold firm pressure until help arrives. SKIN IRRITATION: * You may experience some redness and/or swelling in the area where radiation was administered. If any skin irritation occurs, please contact your family physician. FOLLOW UP VISIT: Keep any scheduled doctor appointments. Last Recorded Wt (Kilograms): 100 Anesthesia Post Anesthesia Instructions: If you have had IV Sedation: * Do not drive today. * Resume driving when surgeon permits. * Do not make important decisions or sign legal documents today. * Call surgeon for: 1. Temperature elevations greater than 101 degrees F. 2. Uncontrollable pain. 3. Excessive bleeding. 4. Persistent nausea and vomiting. 5. Medication intolerance (nausea, vomiting or rash). * For nausea and vomiting use only clear liquids such as: tea, soda, bouillon until nausea subsides, then gradually increase diet as tolerated. * If you have any concerns or questions, call your surgeon's office. If physician is unavailable and it is an emergency, call 911 or go to the nearest emergency room. Instructions Activity Recommendations: limitations as noted below Recommended Home Diet: resume previous diet Allergies: Coded Allergies: No Known Allergies (Unverified , 07/01/16) Follow Up Follow-up with: Dr. Crespo in 6 months with repeat lipid panel Lacho Praker Recommendations: Call your doctor if: * Temperature above 101 degrees * Pain not relieved by pain medicine ordered * There is increased drainage or redness from any incision * You have any unanswered questions or concerns. Your Doctors Instructions noted above were prepared by provider Mark Crespo. Patient Signature Section: Patient Instructions Signature Page Shine Rodriguez Patient (or Guardian) Signature/Date: I have read and understand the instructions given to me by my caregivers. Caregiver/RN/Doctor Signature/Date: The above-named patient and/or guardian has received patient instructions on this date. + Original Patient Signature Page (only) stays with chart. Please make copy for patient.
[2016-07-09 11:00] VITALS: BP 108/56; PULSE 63; O2SAT 94
== END | disposition home or self-care (01) ==
LOC: C.CATH 06:57
PROVIDERS: ATTEND Internal Medicine Interventional Cardiology
DX: I20.9 Angina pectoris, unspecified (principal)